=== PATIENT | female | born 1960 | race Caucasian/White ===

== ENCOUNTER 2018-01-11 13:29 | Emergency (ER) | payer OTHER ==
[2018-01-11] MEDS ORDERED: HYDROCODONE/APAP 5/325 MG TAB ONE (16:50)
--- NOTE | 2018-01-11 17:07 | RAD REPORT ---
EXAM DESCRIPTION: RAD - Foot Left 3 View - 01/11/2018 4:52 pm CLINICAL HISTORY: Left foot pain COMPARISON: None. FINDINGS: Mildly displaced fracture involves the distal shaft of the fifth metatarsal. Moderate jose guadalupe cent soft tissue swelling is seen. Prominent calcaneal spurs are present.
--- NOTE | 2018-01-11 17:40 | EDPHYS ---
Physician Documentation [facility] Name: Kristen Monson Age: 57 yrs Sex: Female : 1960 Arrival Date: 01/11/2018 Time: 13:32 Bed 11 Private MD: Livia Trotter K ED Physician Ricki Brown HPI: 01/11 16:57 This 57 yrs old Female presents to ER via Wheelchair with complaints of Ankle jr8 Injury. 16:57 The patient presents with decreased range of motion, pain, swelling, tenderness. The jr8 complaints affect the left ankle, right ankle. Onset: The symptoms/episode began/occurred acutely, yesterday. Context: The problem was sustained at home. Associated signs and symptoms: The patient has no apparent associated signs or symptoms. Modifying factors: The symptoms are alleviated by nothing, the symptoms are aggravated by nothing. Severity of symptoms: At their worst the symptoms were moderate, in the emergency department the symptoms are unchanged. The patient has not experienced similar symptoms in the past. The patient has not recently seen a physician. Patient stated that she was playing with her grandchildren and slipped twisting both ankles. Pain, swelling, bruising to both ankles and to left foot . Historical: - Allergies: 13:43 No Known Allergies; aj - Home Meds: 13:43 Singulair 10 mg Oral tab 1 tab once daily [Active]; Synthroid 75 mcg Oral tab 1 tab aj once daily [Active]; Symbicort 160-4.5 mcg/actuation inhalation HFAA 2 puffs 2 times per day [Active]; ProAir HFA inhalation inhalation [Active]; losartan 25 mg oral tab 1 tab once daily [Active]; - PMHx: 13:43 Hypertension; Hypothyroidism; Asthma; aj - Immunization history:: Adult Immunizations up to date. - Social history:: Smoking status: Patient/guardian denies using tobacco. ROS: 16:57 Eyes: Negative for injury, pain, redness, and discharge, ENT: Negative for injury, jr8 pain, and discharge, Neck: Negative for injury, pain, and swelling, Cardiovascular: Negative for chest pain, palpitations, and edema, Respiratory: Negative for shortness of breath, cough, wheezing, and pleuritic chest pain, Abdomen/GI: Negative for abdominal pain, nausea, vomiting, diarrhea, and constipation, Back: Negative for injury and pain, Skin: Negative for injury, rash, and discoloration, Neuro: Negative for headache, weakness, numbness, tingling, and seizure. 16:57 MS/extremity: Positive for decreased range of motion, ecchymosis, pain, swelling, tenderness, of the right and left ankles. Left foot. Exam: 16:57 Cardiovascular: Regular rate and rhythm with a normal S1 and S2. No gallops, murmurs, jr8 or rubs. Normal PMI, no JVD. No pulse deficits. Respiratory: Lungs have equal breath sounds bilaterally, clear to auscultation and percussion. No rales, rhonchi or wheezes noted. No increased work of breathing, no retractions or nasal flaring. Back: No spinal tenderness. No costovertebral tenderness. Full range of motion. Skin: Warm, dry with normal turgor. Normal color with no rashes, no lesions, and no evidence of cellulitis. Neuro: Awake and alert, GCS 15, oriented to person, place, time, and situation. Cranial nerves II-XII grossly intact. Motor strength 5/5 in all extremities. Sensory grossly intact. Cerebellar exam normal. Normal gait. 16:57 Musculoskeletal/extremity: Circulation is intact in all extremities. Sensation intact. Right ankle has moderate swelling to lateral and medial malleolus's. Left ankle with swelling to both malleoli. Left foot with moderate swelling and bruising to lateral aspect. All with pain to palpation . Vital Signs: 13:43 BP 137 / 96; Pulse 72; Resp 16; Temp 98.4; Pulse Ox 99% on R/A; Weight 90.72 kg; Height aj 5 ft. 3 in. (160.02 cm); Pain 3/10; 13:43 Body Mass Index 35.43 (90.72 kg, 160.02 cm) Procedures: 17:38 Splinting: Splint applied to left foot using Ortho 3D boot, applied by tech. Examined jr8 by me, post splint application: neurovascular intact, 2+ distal pulses palpable, brisk capillary refill noted, Patient tolerated well. Splinting: Splint applied to right ankle using Orthoglass splint, applied by tech. Examined by me, post splint application: neurovascular intact, 2+ distal pulses palpable, brisk capillary refill noted, Patient tolerated well. MDM: 15:18 Patient medically screened. jr8 17:38 Data reviewed: vital signs, nurses notes, radiologic studies, plain films, and as a jr8 result, I will discharge patient. Data interpreted: Pulse oximetry: on room air is 99 %. Interpretation: normal. Counseling: I had a detailed discussion with the patient and/or guardian regarding: the historical points, exam findings, and any diagnostic results supporting the discharge/admit diagnosis, radiology results, the need for outpatient follow up, a orthopedic surgeon, to return to the emergency department if symptoms worsen or persist or if there are any questions or concerns that arise at home. 01/11 13:41 Order name: XRAY Ankle RIGHT 3 view aj 01/11 13:41 Order name: XRAY Ankle LEFT 3 view aj 01/11 16:25 Order name: XRAY Foot LEFT 3 View jr8 01/11 17:08 Order name: RAD; Complete Time: 17:27 EDDC 01/11 18:27 Order name: RAD; Complete Time: 15:30 EDDC 01/11 16:25 Order name: Short Leg Splint; Complete Time: 18:09 jr8 Administered Medications: 16:31 Drug: [place] 5 mg-325 mg 1 tabs Route: PO; Disposition: 19:02 Co-signature as Attending Physician, Ricki Brown MD. rn Disposition: 01/11/18 17:40 Discharged to Home. Impression: Dista Fibula fracture right ankle, Distal 5th Metatarsal fracture of left foot . - Condition is Stable. - Discharge Instructions: Ankle Fracture, Metatarsal Fracture, Undisplaced. - Medication Reconciliation Form, Thank You Letter, Antibiotic Education, Prescription Opioid Use form. - Follow up: Niles Kiser MD; When: 2 - 3 days; Reason: Recheck today's complaints, Continuance of care, Re-evaluation by your physician. - Problem is new. - Symptoms have improved. Signatures: Dispatcher [employer] EDAnastasiya Rivera RN RN aj Williams, Irene, RN RN iw Nieto, Roman, MD MD rn Roszak, Josh, PA PA jr8
--- NOTE | 2018-01-11 17:40 | ER ---
Nurse's Notes [facility] Name: Kristen Monson Age: 57 yrs Sex: Female : 1960 Arrival Date: 01/11/2018 Time: 13:32 Bed 11 Private MD: Livia Trotter K Diagnosis: Dista Fibula fracture right ankle;Distal 5th Metatarsal fracture of left foot Presentation: 01/11 13:41 Presenting complaint: Patient states: Reports pain to bilateral ankles after stepping aj off a ledge and she believes she rolled both ankles. Transition of care: patient was not received from another setting of care. Onset of symptoms was January 10, 2018. Care prior to arrival: None. 13:41 Method Of Arrival: Wheelchair aj 13:41 Acuity: ROSE 4 aj Triage Assessment: 13:43 General: Appears in no apparent distress. comfortable, Behavior is calm, cooperative, aj appropriate for age. Pain: Complains of pain in right ankle, anterior aspect of right ankle, left lateral ankle and anterior aspect of left ankle Pain currently is 3 out of 10 on a pain scale. Neuro: Level of Consciousness is awake, alert, obeys commands, Oriented to person, place, time, situation. Respiratory: Airway is patent Respiratory effort is even, unlabored, Respiratory pattern is regular, symmetrical. Derm: Skin is pink, warm \T\ dry. Bruising that is on left lateral ankle. Musculoskeletal: Swelling present in right ankle and left lateral ankle Reports pain in right ankle and left lateral ankle. Historical: - Allergies: 13:43 No Known Allergies; aj - Home Meds: 13:43 Singulair 10 mg Oral tab 1 tab once daily [Active]; Synthroid 75 mcg Oral tab 1 tab aj once daily [Active]; Symbicort 160-4.5 mcg/actuation inhalation HFAA 2 puffs 2 times per day [Active]; ProAir HFA inhalation inhalation [Active]; losartan 25 mg oral tab 1 tab once daily [Active]; - PMHx: 13:43 Hypertension; Hypothyroidism; Asthma; aj - Immunization history:: Adult Immunizations up to date. - Social history:: Smoking status: Patient/guardian denies using tobacco. Screenin:26 Abuse screen: Denies threats or abuse. Denies injuries from another. Nutritional iw screening: No deficits noted. Tuberculosis screening: No symptoms or risk factors identified. Fall Risk Fall in past 12 months (25 points). Assessment: 17:00 Reassessment: Patient appears in no apparent distress at this time. Patient and/or iw family updated on plan of care and expected duration. Pain level reassessed. Patient is alert, oriented x 3, equal unlabored respirations, skin warm/dry/pink. Vital Signs: 13:43 BP 137 / 96; Pulse 72; Resp 16; Temp 98.4; Pulse Ox 99% on R/A; Weight 90.72 kg; Height aj 5 ft. 3 in. (160.02 cm); Pain 3/10; 13:43 Body Mass Index 35.43 (90.72 kg, 160.02 cm) aj ED Course: 13:32 Patient arrived in ED. mr 13:32 Livia Trotter MD is Private Physician. mr 13:42 Triage completed. aj 13:43 Arm band placed on left wrist. Patient placed in waiting room, Patient notified of wait aj time. X-ray ordered. 15:17 Snehal Pantoja, KAYLA is Primary Nurse. iw 15:18 Mike Euceda PA is PHCP. jr8 15:18 Ricki Brown MD is Attending Physician. jr8 16:44 X-ray completed. Portable x-ray completed in exam room. Patient tolerated procedure ag1 well. 17:39 Niles Kiser MD is Referral Physician. jr8 Administered Medications: 16:31 Drug: [place] 5 mg-325 mg 1 tabs Route: PO; iw Outcome: 17:40 Discharge ordered by . jr8 18:36 Patient left the ED. iw Signatures: Anastasiya Dueñas RN RN aj Rivera, Maria mr Snehal Pantoja, RN KAYLA Mike Euceda PA PA jr8 Araceli Disla ag1
--- NOTE | 2018-01-11 18:27 | RAD REPORT ---
EXAM DESCRIPTION: RAD - Ankle Left 3 View - 01/11/2018 3:50 pm CLINICAL HISTORY: Ankle pain following twisting injury COMPARISON: None. FINDINGS: No fracture, dislocation or periosteal reaction. No joint effusion seen. Mild degenerative changes are present along the medial margin of the ankle joint. Patient has a small plantar spur and minimal spurring at the Achilles attachment. Prominent soft tissue swelling surrounds the ankle. No foreign body. IMPRESSION: Prominent soft tissue swelling with no fracture identified.
--- NOTE | 2018-01-11 18:37 | RAD REPORT ---
EXAM DESCRIPTION: RAD - Ankle Right 3 View - 01/11/2018 4:07 pm CLINICAL HISTORY: Ankle pain, twisting injury COMPARISON: None. FINDINGS: Nondisplaced, nonangulated oblique fracture is present through the distal fibula. There is significant lateral soft tissue swelling present. Small oval bone density distal to the fibula is no t seen as acute. There is a small 3 mm bony avulsion from the tip of the medial malleolus. Small plan tar and Achilles spurs are present. No joint space narrowing. No foreign body. IMPRESSION: Oblique nondisplaced, nonangulated fibula fracture. Small bony avulsion from the tip of the medial malleolus.
[2018-01-11 19:13] VITALS: BP 137/96; TEMP 98.4; O2SAT 99
== END 2018-01-11 18:36 | disposition home or self-care (01) ==
LOC: ER 13:29
PROC: 2W3QX1Z Immobilization of Right Lower Leg using Splint (ICD-10-PCS; principal; 2018-01-11)
DX: S82.401A Unspecified fracture of shaft of right fibula, initial encounter for closed fracture (principal); S92.355A Nondisplaced fracture of fifth metatarsal bone, left foot, initial encounter for closed fracture; M25.572 Pain in left ankle and joints of left foot; X50.1XXA Overexertion from prolonged static or awkward postures, initial encounter; Y93.89 Activity, other specified; Y92.89 Other specified places as the place of occurrence of the external cause; I10 Essential (primary) hypertension; E03.9 Hypothyroidism, unspecified; J45.909 Unspecified asthma, uncomplicated
CPT/HCPCS: 99282